=== PATIENT | female | born 1995 | race Caucasian/White ===

== ENCOUNTER 2018-01-20 09:12 | Inpatient (IN) | payer OTHER ==
[~2018-01-20] VITALS: Ht 162.6 cm; Wt 3.2 kg
[~2018-01-20 09:12] MED LIST: NAPR500T14 PO; PRENATAL CAPLE1 EACH PO; PRENATE ADVANCE PO
[2018-01-22] MEDS ORDERED: PREPLUS CA-FE1 EACH PO (12:38)
[2018-01-22] MEDS ORDERED: NAPR500T14 PO (12:38)
[2018-01-22] MEDS ORDERED: GAS RELIEF125 MG PO (12:38)
[2018-01-22] MEDS ORDERED: OXYC1TAB9 PO (12:38)
== END 2018-01-22 13:09 | DRG 766 ==
LOC: OB/GYN 09:12 → LDR 09:12 → O/R 13:00 → OB/GYN 13:17 → LDR 13:17 → OB/GYN 15:27
PROVIDERS: Specialist
PROC: 4A033R1 Measurement of Arterial Saturation, Peripheral, Percutaneous Approach (ICD-10-PCS; 2018-01-20)
PROC: 4A1HXCZ Monitoring of Products of Conception, Cardiac Rate, External Approach (ICD-10-PCS; 2018-01-20)
PROC: 10D00Z1 Extraction of Products of Conception, Low, Open Approach (ICD-10-PCS; principal; 2018-01-20 12:00)
DX: O82 Encounter for cesarean delivery without indication (principal); Z3A.39 39 weeks gestation of pregnancy; Z37.0 Single live birth